=== PATIENT | male | born 1950 | race African-American/Black ===

== ENCOUNTER → 2020-05-28 09:57 | Outpatient (BNVA) | payer MEDICARE, OTHER, SELFPAY | PROVIDERS: Visit Provider Urology | DX: Z13.89 Encounter for screening for other disorder (principal) | CPT/HCPCS: Q3014 ==

== ENCOUNTER 2021-05-28 09:48 | Outpatient (REF) | payer MEDICARE, OTHER, SELFPAY ==
[2021-05-28 10:57] LABS: Blood Urea Nitrogen 30 mg/dL (9-16); Estimated Glomerular Filt Rate 32
== END 2021-05-28 09:49 | disposition home or self-care (01) ==
LOC: HO.LAB 09:48
PROVIDERS: Visit Provider Urology
DX: Z12.5 Encounter for screening for malignant neoplasm of prostate (principal); N13.8 Other obstructive and reflux uropathy; N40.1 Benign prostatic hyperplasia with lower urinary tract symptoms; N26.1 Atrophy of kidney (terminal)
CPT/HCPCS: 36415; 82565; 84153; 84520

== ENCOUNTER → 2021-06-03 10:48 | Outpatient (REF) | payer MEDICARE, OTHER, SELFPAY ==
--- NOTE | ~2021-06-03 | NM_ITS ---
EXAMINATION: RENAL DYNAMIC IMAGING STUDY WITH LASIX CLINICAL INFORMATION: Atrophy of kidney (terminal) COMPARISON: The report of a prior study performed at [facility] dated 05/22/2020 is available, but the images from that study are not available for comparison. TECHNIQUE: Serial gamma scintillation camera images were obtained over the posterior trunk during the initial transit and subsequent distribution of a bolus intravenous injection of 10.0 mCi of Tc-99m DTPA. At 33 minutes later, 40 mg of Lasix was administered intravenously and an additional 30 minutes of images obtained. FINDINGS: Initial rapid sequence images show prompt and normal-appearing flow to the right kidney but flow to the left kidney is moderately diminished compared to the right. Subsequent sequential static images obtained up to 30 minutes show good concentration in the right kidney which appears normal in size. The left kidney shows moderately diminished concentration and appears slightly smaller in size than the right. There is evidence of excretory function by 3 minutes post injection on the right an by 5 minutes post injection on the left. At 30 minutes postinjection there is good visualization of activity in the urinary bladder and mild retention in both renal pelves. The right renal pelvis does not appear significantly dilated but there is mild dilatation on the left as well as diffuse prominence of the calyces. Calyceal prominence is not present on the right. Following Lasix administration, there is washout from both renal collecting systems, but this is much more rapid and more complete on the right. Washout on the left is slow and there is significantly more retention in the left renal collecting system as well as in a faintly visualized tortuous left ureter at the end of the study. A very full urinary bladder is also noted at the end of the study. The T-1/2 washout time following Lasix administration is 12.6 minutes on the left. There is insufficient retention in the right renal pelvis at the time of Lasix administration to calculating meaningful T-1/2 washout time on the right. The relative function of the two kidneys based on the 2-3 minute images are: Left 39% and right 61%. NM/NM renal flow w pharm int IMPRESSION: LEFT KIDNEY: Moderately impaired perfusion and function in the left kidney. Mild hydronephrosis is present but there is only minimal, if any, significant outflow obstruction. Some tortuosity of the left ureter is noted. RIGHT KIDNEY: Normal perfusion and function. No hydronephrosis or outflow obstruction.
== END ==
LOC: HO.NUCMED 10:48
PROVIDERS: Visit Provider Urology
DX: K26.1 Acute duodenal ulcer with perforation (principal)
CPT/HCPCS: 78708; A9539; J1940

== ENCOUNTER → 2021-07-23 15:32 | Outpatient (BNVA) | payer MEDICARE, OTHER, SELFPAY | PROVIDERS: Visit Provider Urology | DX: Z13.89 Encounter for screening for other disorder (principal) | CPT/HCPCS: Q3014 ==

== ENCOUNTER 2022-07-06 11:17 | Outpatient (REF) | payer MEDICARE, OTHER, SELFPAY ==
--- NOTE | ~2022-07-06 | US_ITS ---
EXAMINATION: US RETROPERITONEAL LIMITED (RENAL ONLY) CLINICAL INFORMATION: Unspecified hydronephrosis. COMPARISON: None available. TECHNIQUE: Real-time imaging of the kidneys. FINDINGS: RIGHT KIDNEY: 9.3 x 4.8 x 5.6 cm (SAG x AP x TRV). The kidney is normal in size, contour, and echogenicity. Renal cortical thickness is normal. No renal calculi or focal parenchymal lesions. LEFT KIDNEY: 11.2 x 6.2 x 5.5 cm (SAG x AP x TRV). The kidney is normal in size, contour, and echogenicity. Parenchymal cortical thinning. No renal calculi or focal parenchymal lesions. Mild to moderate left hydronephrosis US/US renal BI IMPRESSION: Mild to moderate left hydronephrosis with parenchymal cortical thinning.
== END 2022-07-06 11:18 | disposition home or self-care (01) ==
LOC: HO.US 11:17
PROVIDERS: Visit Provider Urology
DX: N13.30 Unspecified hydronephrosis (principal)
CPT/HCPCS: 76775

== ENCOUNTER 2022-07-17 09:37 | Outpatient (REF) | payer MEDICARE, OTHER, SELFPAY ==
[2022-07-17 10:55] LABS: Estimated Glomerular Filt Rate 38
[2022-07-17 11:16] LABS: Prostate Specific Antigen 4.03 ng/mL (<0.05-4.0)
== END 2022-07-17 09:38 | disposition home or self-care (01) ==
LOC: HO.LAB 09:37
PROVIDERS: Visit Provider Urology
DX: Z12.5 Encounter for screening for malignant neoplasm of prostate (principal); N13.30 Unspecified hydronephrosis; N13.8 Other obstructive and reflux uropathy; N40.1 Benign prostatic hyperplasia with lower urinary tract symptoms
CPT/HCPCS: 36415; 82565; 84153

== ENCOUNTER → 2022-07-23 10:51 | Outpatient (BNVA) | payer MEDICARE, OTHER, SELFPAY | PROVIDERS: Visit Provider Urology | DX: N13.30 Unspecified hydronephrosis (principal); R33.9 Retention of urine, unspecified; R97.20 Elevated prostate specific antigen [PSA]; Z79.899 Other long term (current) drug therapy | CPT/HCPCS: 99212 ==

== ENCOUNTER 2023-03-10 09:45 | Outpatient (REF) | payer MEDICARE, OTHER, SELFPAY | END 2023-03-10 09:46 | disposition home or self-care (01) | LOC: HO.LAB 09:45 | PROVIDERS: Visit Provider Urology | DX: R97.20 Elevated prostate specific antigen [PSA] (principal); Z12.5 Encounter for screening for malignant neoplasm of prostate | CPT/HCPCS: 36415; 84153 ==

== ENCOUNTER 2023-03-12 09:34 | Outpatient (AMB) | payer MEDICARE, OTHER, SELFPAY ==
--- NOTE | 2023-03-12 09:36 | MHC.OFFVIS ---
Intake Intake Visit Reasons: 6M PSA(set) Intake Note: Patient is Present for Telephone Follow Up PSA Urology Med: Terazosin Antibiotic Allergy: None Blood Thinner: None Allergies No Known Allergies [No Known Allergies*] Allergy (Verified 03/12/23 09:38) Medication List - Last Reconciled 03/12/23 by Tyrell Blunt MD brimonidine-timolol 0.2-0.5 % 1 drp ophthalmic (eye) BID rosuvastatin 5 mg PO DAILY rosuvastatin 10 mg PO BEDTIME terazosin 5 mg PO BEDTIME 90 days HPI HPI Comments History of Present Illness Details Tyson is a very pleasant male. He is a patient of Dr. Jasso, he is seen for the following urologic conditions - urinary retention - hydronephrosis - lower urinary tract symptoms Telemedicine Evaluation 15 min Consultation [employer] Video attempted Continues on terazosin for bladder emptying PSA normalized PSA 05/27 1.9, 07/28 4.0, 03/30 2.4 Six month follow-up to maintain stabilization Prior [facility] normal Hydronephrosis/Hydroureter: Had hydronephrosis secondary to J hooking with extremely large prostate Currently emptying well Underwent prostate procedure in 2016 Had gradual recovery of creatinine to 2.0 Hydronephrosis was diagnosed through routine imaging. Relevant past medical history BPH Yes TURP 11/22 Laser enucleation Anatomic imaging findings include US with, chronic, hydronephrosis, on the left, Prostate 85cc 01/22 PVR 1100cc, mild left hydronephrosis 03/26 , US with, PVR 875, mild left hydroneprhosis, prostate 68cc - 05/26 repeat renal imaging, delayed emptying on left side. 30% function is consistent with prior year. - 05/27 repeat renal imaging - 40% function on left side - 05/28 ultrasound parenchymal thinning left side, mild left hydro persistent Laboratory results Creatinine 08/21 2.5,05/22 2.1, 10/22 2.25, 07/23 2.0, 04/27 2.0, 06/28 Cr 1.8 Lower urinary tract symptoms Large prostate with J hooking Underwent laser enucleation 11/22 Stabilization of creatinine Single agent therapy terazosin Review of Systems Const All systems reviewed & are unremarkable except as noted in HPI and below Reports no additional complaints Resp Reports no additional complaints GI Reports no additional complaints Reports as per HPI Musc Reports no additional complaints Physical Exam Telemedicine evaluation Appropriate responses Regular breathing rate and rhythm HEENT Head: Yes normal to inspection Ears: hearing grossly normal bilaterally Eyes General: appearance normal, both eyes and all related structures Neck Neck: Yes normal visual inspection Chest Chest palpation & inspection: normal inspection of the chest Resp Effort & Inspection: normal respiratory effort and able to speak in complete sentences Assessment & Plan Assessment & Plan (1) BPH w urinary obs/LUTS: Code(s): N40.1 - Benign prostatic hyperplasia with lower urinary tract symptoms; N13.8 - Other obstructive and reflux uropathy (2) Elevated PSA: Code(s): R97.20 - Elevated prostate specific antigen [PSA] Plan Six month follow-up PSA Orders: Orders Prostate Specific Antigen 6 Months R97.20 - Elevated prostate specific antigen [PSA] Medications: Refilled terazosin 5 mg PO BEDTIME 90 caps 1RF 90 days Patient Instructions: Imaging studies, laboratory and physical exam results were discussed and reviewed in detail. No major barriers to patient understanding were identified. An opportunity to ask questions regarding the treatment plan was provided. All questions were answered. The patient expressed understanding and agreement with the above treatment plan. The patient is aware they should contact our office by phone for worsening of their current condition or the appearance of new urologic symptoms. Compliance is encouraged with any medications and followup testing that is ordered. It is a privilege to participate in the urologic care of your patient. If you have any questions or concerns regarding treatment for the above conditions, or other urologic issues, please do not hesitate to contact me. The office telephone contact is [phone]. This note is constructed using voice recognition software. While every effort has been made to ensure accuracy project manager process development errors may have been included. Yours sincerely, Dr Tyrell Blunt MD, [facility] - Urology Providers of Expert, Compassionate Care for the Genitourinary System Telehealth Telehealth Location of provider rendering services: practice address Location of patient: address on file Patient Identification confirmed using: Name, : Yes Telehealth method: video Patient verbally consented to treatment: Yes Patient verbally consented to billing insurance company: Yes Patient informed of any privacy concerns related to visit: Yes Coding Level of Care Code Tele Est Pt Level 3 (41809) Diagnoses BPH w urinary obs/LUTS N40.1; N13.8 Elevated PSA R97.20
== END 2023-03-12 10:21 | disposition home or self-care (01) ==
LOC: HO.HUSH 09:34
PROVIDERS: Visit Provider Urology
DX: N40.1 Benign prostatic hyperplasia with lower urinary tract symptoms (principal); N13.8 Other obstructive and reflux uropathy; R97.20 Elevated prostate specific antigen [PSA]
CPT/HCPCS: 99213

== ENCOUNTER → 2023-03-12 09:34 | Outpatient (BNVA) | payer MEDICARE, OTHER, SELFPAY | PROVIDERS: Visit Provider Urology ==

== ENCOUNTER 2023-12-28 11:19 | Outpatient (REF) | payer MEDICARE, OTHER, SELFPAY | END 2023-12-28 11:20 | disposition home or self-care (01) | LOC: HO.LAB 11:19 | PROVIDERS: PCP Internal Medicine; Visit Provider Urology | DX: R97.20 Elevated prostate specific antigen [PSA] (principal); Z12.5 Encounter for screening for malignant neoplasm of prostate | CPT/HCPCS: 36415; 84153 ==

== ENCOUNTER 2024-01-07 11:25 | Outpatient (AMB) | payer MEDICARE, OTHER, SELFPAY ==
--- NOTE | 2024-01-07 11:43 | MHC.OFFVIS ---
Intake Visit Reasons: 6m/PSA(set) Intake Note: Patient is Present for Follow Up PSA Urology Medication: Terazosin Antibiotic Allergies:None Blood Thinners:None Recent PSA: 12/28/2023 PSA: 2.40 Engine Lathe Set Up Operator Required: No Accompanied by: Self / Same As Patient Allergies No Known Allergies [No Known Allergies*] Allergy (Verified 01/07/24 11:51) HPI Comments Details: Tyson is a very pleasant male. He is a patient of Dr. Jasso, he is seen for the following urologic conditions - urinary retention - hydronephrosis - lower urinary tract symptoms Six-month follow-up PSA maintained May move to yearly Continues on terazosin for bladder emptying Prescription refilled PSA normalized PSA 05/27 1.9, 07/28 4.0, 03/30 2.4, 12/29 2.4 Six month follow-up to maintain stabilization Prior [facility] normal Hydronephrosis/Hydroureter: Had hydronephrosis secondary to J hooking with extremely large prostate Currently emptying well Underwent prostate procedure in 2016 Had gradual recovery of creatinine to 2.0 Hydronephrosis was diagnosed through routine imaging. Relevant past medical history BPH Yes TURP 11/22 Laser enucleation Anatomic imaging findings include US with, chronic, hydronephrosis, on the left, Prostate 85cc 01/22 PVR 1100cc, mild left hydronephrosis 03/26 , US with, PVR 875, mild left hydroneprhosis, prostate 68cc - 05/26 repeat renal imaging, delayed emptying on left side. 30% function is consistent with prior year. - 05/27 repeat renal imaging - 40% function on left side - 05/28 ultrasound parenchymal thinning left side, mild left hydro persistent Laboratory results Creatinine 08/21 2.5,05/22 2.1, 10/22 2.25, 07/23 2.0, 04/27 2.0, 06/28 Cr 1.8 Lower urinary tract symptoms Large prostate with J hooking Underwent laser enucleation 11/22 Stabilization of creatinine Single agent therapy terazosin Review of Systems Const Denies chills and Denies fever(s) Card Reports no additional complaints and Denies syncope Resp Denies cough GI Denies abdominal pain and Denies heartburn Reports as per HPI and Denies change in libido Neuro Denies syncope Psych Denies change in libido Endo Denies change in libido Physical Exam Const General: cooperative, healthy appearing, comfortable and no acute distress Orientation/consciousness: patient oriented x3 HEENT Face and sinus: Yes normal facial exam Mouth: moist mucous membranes Neck Neck: Yes normal visual inspection, Yes full ROM and Yes trachea midline Chest Chest palpation & inspection: normal inspection of the chest Resp Effort & Inspection: normal respiratory effort, able to speak in complete sentences and no respiratory distress GI Inspection: Yes normal to inspection Back/Spine/Pelvis Cervical Spine: normal cervical lordosis Thoracic/Lumbar Spine: thoracic and lumbar spine normal to inspection Skin General skin exam: no rashes or lesions noted Neuro General: patient oriented x3, gait normal, tone normal and moves all extremities Extrem General: Yes normal to inspection and Yes capillary refill normal Assessment & Plan Assessment & Plan (1) BPH w urinary obs/LUTS: Code(s): N40.1 - Benign prostatic hyperplasia with lower urinary tract symptoms; N13.8 - Other obstructive and reflux uropathy Category: Medical (2) Elevated PSA: Code(s): R97.20 - Elevated prostate specific antigen [PSA] Category: Medical Plan Twelve month follow-up Orders: Orders Prostate Specific Antigen 364 Days N13.8 - Other obstructive and reflux uropathy, N40.1 - Benign prostatic hyperplasia with lower urinary tract symptoms Patient Instructions: Imaging studies, laboratory and physical exam results were discussed and reviewed in detail. No major barriers to patient understanding were identified. An opportunity to ask questions regarding the treatment plan was provided. All questions were answered. The patient expressed understanding and agreement with the above treatment plan. The patient is aware they should contact our office by phone for worsening of their current condition or the appearance of new urologic symptoms. Compliance is encouraged with any medications and followup testing that is ordered. It is a privilege to participate in the urologic care of your patient. If you have any questions or concerns regarding treatment for the above conditions, or other urologic issues, please do not hesitate to contact me. The office telephone contact is [phone]. This note is constructed using voice recognition software. While every effort has been made to ensure accuracy change management analyst errors may have been included. Yours sincerely, Dr Tyrell Blunt MD, [facility] - Urology Providers of Expert, Compassionate Care for the Genitourinary System Coding Level of Care Code Est Pt Level 3 (24248) Diagnoses BPH w urinary obs/LUTS N40.1; N13.8 Elevated PSA R97.20
== END 2024-01-07 11:57 | disposition home or self-care (01) ==
LOC: HO.HUSH 11:25
PROVIDERS: Visit Provider Urology
DX: N40.1 Benign prostatic hyperplasia with lower urinary tract symptoms (principal); N13.8 Other obstructive and reflux uropathy; R97.20 Elevated prostate specific antigen [PSA]
CPT/HCPCS: 99213

== ENCOUNTER → 2024-01-07 11:25 | Outpatient (BNVA) | payer MEDICARE, OTHER, SELFPAY | PROVIDERS: Visit Provider Urology | DX: N40.1 Benign prostatic hyperplasia with lower urinary tract symptoms (principal); N13.8 Other obstructive and reflux uropathy; R97.20 Elevated prostate specific antigen [PSA] | CPT/HCPCS: 99212 ==

== ENCOUNTER 2025-01-22 10:19 | Outpatient (REF) | payer MEDICARE, OTHER, SELFPAY ==
[2025-01-22 11:35] LABS: Prostate Specific Antigen 5.07 ng/mL (<0.05-4.0)
== END 2025-01-22 10:20 | disposition home or self-care (01) ==
LOC: HO.LAB 10:19
PROVIDERS: Visit Provider Urology
DX: Z12.5 Encounter for screening for malignant neoplasm of prostate (principal); N40.1 Benign prostatic hyperplasia with lower urinary tract symptoms; N13.8 Other obstructive and reflux uropathy
CPT/HCPCS: 36415; 84153

== ENCOUNTER 2025-01-30 08:15 | Outpatient (AMB) | payer MEDICARE, OTHER, SELFPAY ==
--- NOTE | 2025-01-30 08:16 | A.OFFVIS_ITS ---
Intake Visit Reasons: 1Y PSA/PVR(psa?) Intake Note: Patient is Present for 1 YR Follow Up PSA Urology Medication: Terazosin Antibiotic Allergies:None Blood Thinners:None PVR:282 MLS Recent PSA: 01/22/25 PSA: 5.07 Security Systems Administrator Required: No Accompanied by: Self / Same As Patient Allergies No Known Allergies (No Known Allergies*) Allergy (Verified 01/30/25 08:19) HPI Comments Details: Tyson is a very pleasant male. He is a patient of Dr. Jasso, he is seen for the following urologic conditions - urinary retention - hydronephrosis - lower urinary tract symptoms 12m f/u Continues on terazosin for bladder emptying PSA has risen PVR 200 cc Start finasteride PSA 05/27 1.9, 07/28 4.0, 03/30 2.4, 12/29 2.4, 01/30 5.1 Six month follow-up to maintain stabilization Prior [facility] normal Hydronephrosis/Hydroureter: Had hydronephrosis secondary to J hooking with extremely large prostate Currently emptying well Underwent prostate procedure in 2016 Had gradual recovery of creatinine to 2.0 Hydronephrosis was diagnosed through routine imaging. Relevant past medical history BPH Yes TURP 11/22 Laser enucleation Anatomic imaging findings include US with, chronic, hydronephrosis, on the left, Prostate 85cc 01/22 PVR 1100cc, mild left hydronephrosis 03/26 , US with, PVR 875, mild left hydroneprhosis, prostate 68cc - 05/26 repeat renal imaging, delayed emptying on left side. 30% function is consistent with prior year. - 05/27 repeat renal imaging - 40% function on left side - 05/28 ultrasound parenchymal thinning left side, mild left hydro persistent Laboratory results Creatinine 08/21 2.5,05/22 2.1, 10/22 2.25, 07/23 2.0, 04/27 2.0, 06/28 Cr 1.8 Lower urinary tract symptoms Large prostate with J hooking Underwent laser enucleation 11/22 Stabilization of creatinine Single agent therapy terazosin Review of Systems Const Denies chills and Denies fever(s) Card Reports no additional complaints and Denies syncope Resp Denies cough GI Denies abdominal pain and Denies heartburn Reports as per HPI and Denies change in libido Neuro Denies syncope Psych Denies change in libido Endo Denies change in libido Physical Exam Const General: cooperative, healthy appearing, comfortable and no acute distress Orientation/consciousness: patient oriented x3 HEENT Face and sinus: Yes normal facial exam Mouth: moist mucous membranes Neck Neck: Yes normal visual inspection, Yes full ROM and Yes trachea midline Chest Chest palpation & inspection: normal inspection of the chest Resp Effort & Inspection: normal respiratory effort, able to speak in complete sentences and no respiratory distress GI Inspection: Yes normal to inspection Back/Spine/Pelvis Cervical Spine: normal cervical lordosis Thoracic/Lumbar Spine: thoracic and lumbar spine normal to inspection Skin General skin exam: no rashes or lesions noted Neuro General: patient oriented x3, gait normal, tone normal and moves all extremities Extrem General: Yes normal to inspection and Yes capillary refill normal Office Procedures Post Void Residual Post Residual Void Post Void Residual (PVR): 282 [id number] Void Residual by ultrasound Results AMB Urinalysis, Automated UA Leukoctes 70 Solange/uL Last Edit by Tamra Rider [facility] on 01/30/25 08:27 UA Nitrite Negative Last Edit by Tamra Rider [facility] on 01/30/25 08:27 UA Urobilinogen 0.2 mg/dL Last Edit by Tamra Rider [facility] on 01/30/25 08:27 UA Protein 30 mg/dL Last Edit by Tamra Rider [facility] on 01/30/25 08:27 UA pH 6.0 Last Edit by Tamra Rider [facility] on 01/30/25 08:27 UA Blood 0 Tadeo/uL Last Edit by Tamra Rider [facility] on 01/30/25 08:27 UA Specific Kipling 1.015 Last Edit by Tamra Rider [facility] on 01/30/25 08:2 7 UA Ketone Negative Last Edit by Tamra Rider [facility] on 01/30/25 08:27 UA Bilirubin 0 mg/dL Last Edit by Tamra Rider [facility] on 01/30/25 08:27 UA Glucose 0 mg/dL Last Edit by Tamra Rider [facility] on 01/30/25 08:27 Results Reviewed Results Reviewed: Laboratory Last Values Urine pH (Auto) 6.0 01/30/25 08:27 Specific Kipling (Auto) 1.015 01/30/25 08:27 Urine Protein (Auto) 30 mg/dL 01/30/25 08:27 Glucose (UA)(Auto) 0 mg/dL 01/30/25 08:27 Urine Ketones (Auto) Negative 01/30/25 08:27 Urine Blood (Auto) 0 Tadeo/uL 01/30/25 08:27 Urine Nitrite (Auto) Negative 01/30/25 08:27 Urine Bilirubin (Auto) 0 mg/dL 01/30/25 08:27 Urine Urobilinogen (Auto) 0.2 mg/dL 01/30/25 08:27 Leukocyte Esterase (Auto) 70 Solange/uL 01/30/25 08:27 Assessment & Plan Assessment & Plan (1) Hydronephrosis: Code(s): N13.30 - Unspecified hydronephrosis Category: Medical (2) BPH w urinary obs/LUTS: Code(s): N40.1 - Benign prostatic hyperplasia with lower urinary tract symptoms; N13.8 - Other obstructive and reflux uropathy Category: Medical Plan Six-month follow-up Start dutasteride Continue terazosin PSA Orders: Orders Prostate Specific Antigen 6 Months R97.20 - Elevated prostate specific antigen [PSA] Medications: New dutasteride 0.5 mg PO DAILY 90 caps 1RF 90 days N13.8 - Other obstructive and reflux uropathy, N40.1 - Benign prostatic hyperplasia with lower urinary tract symptoms Refilled terazosin 5 mg PO BEDTIME 90 caps 3RF 90 days N13.8 - Other obstructive and reflux uropathy, N40.1 - Benign prostatic hyperplasia with lower urinary tract symptoms Patient Instructions: This note is constructed using voice recognition software. While every effort has been made to ensure accuracy senior administrative assistant errors may have been included. Imaging studies, laboratory and physical exam results were discussed and reviewed in detail. No major barriers to patient understanding were identified. An opportunity to ask questions regarding the treatment plan was provided. All questions were answered. The patient expressed understanding and agreement with the above treatment plan. The patient is aware they should contact our office by phone for worsening of their current condition or the appearance of new urologic symptoms. Compliance is encouraged with any medications and followup testing that is ordered. It is a privilege to participate in the urologic care of your patient. If you have any questions or concerns regarding treatment for the above conditions, or other urologic issues, please do not hesitate to contact me. The office telephone contact is [phone]. Sincerely, Dr Tyrell Blunt MD, [facility] - Urology Compassionate Specialist Care for the Genitourinary System Coding Level of Care Code Complex visit Add On G2211 Diagnoses Hydronephrosis N13.30 BPH w urinary obs/LUTS N40.1; N13.8 CPT Codes Post Residual Void - PVR CPT Code: 67402-Umcs Void Residual by ultrasound ([id number])
--- OUTSIDE RECORDS SUMMARY | 2025-01-30 08:28 | XMS_ITS | Clinical Summary ---
Author Organization [address] [place] [address] Address [address] [place] [address] Phone Care Team Providers Care Sales Service Manager Name Role Phone Eunice Nash MD Primary Care Provider [phone] Allergies No known active allergies Medications terazosin (HYTRIN) 5 mg capsule Take 1 capsule (5 mg total) by mouth 1 (one) time each day. 0 Active Combigan 0.2-0.5 % ophthalmic solution apply 1 Drop to the eye at bedtime. 1 Active cholecalciferol (VITAMIN D-3) 25 mcg (1,000 unit) capsule Take 2 Caps by mouth daily. 4 Active amLODIPine (NORVASC) 10 mg tabletIndications :Essential (primary) hypertension TAKE 1 TABLET BY MOUTH 1 TIME EACH DAY. 90 tablet 1 5 Active rosuvastatin (CRESTOR) 10 mg tablet TAKE 1 TABLET BY MOUTH 1 TIME EACH DAY. 90 tablet 1 5 Active Active Problems Problem Noted Date Diagnosed Date Tubular adenoma 08/01/2020 Overview (12/15/2023): X6 07/30/20 repeat colonoscopy in 2 years Primary osteoarthritis of right knee 09/27/2017 Atrophy of left kidney 07/27/2017 Overview (12/15/2023): Sees Dr Tyrell Gamble in Urology, on terazosin 5mg/day Constipation 11/23/2007 BPH with urinary obstruction 02/03/2007 Essential hypertension, benign 10/29/2005 Hyperlipidemia 10/29/2005 Obesity, unspecified 10/29/2005 Resolved Problems Problem Noted Date Diagnosed Date Resolved Date Prediabetes 11/17/2006 09/22/2024 Encounters Date Type Department Care Team Description 12/19/2024 Telephone [facility] [address] [facility] [place] [address] Inez Solitario [place] 11/27/2024 [facility] [address] [facility] [place] [address] Eunice Nash MD from Last 3 Months Immunizations Immunization Administration Dates Next Due Influenza trivalent, 0.5mL ( Fluzone High-dose) 65yo and older 11/25/2022,05/19/2021,12/11/2016,11/27 Influenza trivalent, with pr eservative (Fluzone; Afluria) 6mo and older 03/30/2011 Influenza, Unspecified 03/30/2011 Pneumococcal conjugate 13 va lent (Prevnar 13, PCV13) 2mo and older 03/30/2017 Pneumococcal conjugate 20 va lent (Prevnar 20, PCV 20) 2mo and older 11/25/2022 Pneumococcal polysaccharide 23 valent (Pneumovax 23) 2yo and older 11/25/2022 Td Tetanus diptheria (Tdvax) 7yo and older 06/13/1996 Tdap Tetanus diptheria acell ular pertussis (Boostrix; Adacel) 7yo and older 11/16/2006 Surgical History Surgery Date Site/Laterality Comments HERNIA REPAIR 1983 Left PROCEDURE: HISTORICAL HERNIA REPAIR/ING EXCISION BENIGN SKIN LESION TRUNK / ARM / LEG 12/1991 PROCEDURE: NV EXCISION TUMOR SOFT TISSUE BACK/FLANK SUBQ <3CM COLONOSCOPY 12/22/2005 PROCEDURE: HISTORICAL COLONOSCOPY; COMMENT: good for 10yrs per Dr. Contreras PROSTATE SURGERY 2007 PROCEDURE: HISTORICAL PROSTATE SURGERY; COMMENT: Dr. Terry- laser TURP ANKLE FRACTURE SURGERY 04/2013 Right PROCEDURE: NV OPEN TREATMENT MEDIAL MALLEOLUS FRACTURE; COMMENT: Distal Fibula (failed cast, Mar) OTHER SURGICAL HISTORY 10/10/2018 Left PROCEDURE: NV XCAPSL CTRC RMVL INSJ IO LENS PROSTH W/O ECP; COMMENT: and iStent for mild open angle glaucoma by Dr Gaxiola OTHER SURGICAL HISTORY 2019 Left PROCEDURE: FLUOROSCOPIC PROCEDURE NEC; COMMENT: left ureter retrograde and stenting x2 in 2019 Dr Blunt, stent removed 10/23/2019 CATARACT EXTRACTION PROCEDURE: HISTORICAL CATARACT REMOVAL Medical History Medical History Date Comments Other and unspecified hyperlipidemia 10/29/2005 DX:Other and unspecified hyperlipidemia Obesity, unspecified 10/29/2005 DX:Obesity, unspecified Essential hypertension, benign 10/29/2005 D X:Essential hypertension, benign Atrophy of left kidney 07/27/2017 DX:Atroph y of left kidney Primary osteoarthritis of right knee 09/27/2017 DX:Primary osteoarthritis of right knee Tubular adenoma 08/01/2020 DX:Tubular adeno ma; COMMENT: X6 07/30/20 repeat colonoscopy in 2 years Type 2 diabetes mellitus (CM S/HCC V24, CMS/HCC V28) 05/27/2023 DX:Type 2 diabetes mellitus (HCC) Family History Medical History Relation Name Comments No Known Problems Brother x2 No Known Problems Daughter 1 No Known Problems Daughter 2 No Known Problems Father No Known Problems Mother No Known Problems Sister 1 No Known Problems Sister 2 Relation Name Status Comments Brother x2 (Age 79) Daughter 1 Alive born '83 Tulio , healthy, manager of regulatory affairs in [place] Daughter 2 Alive born '89 Belinda , has Autism, high function, lives with Pt Father (Age 70) natural c auses Mother (Age 100) natural causes , in [place] Sister 1 (Age 69) natural c auses in [place] Sister 2 (Age 55) [place] Social History Tobacco Use Types Packs/Day Years Used Date Smoking Tobacco: Never Smokeless Tobacco: Never Tobacco Cessation:Counseling Given: Not Answered Alcohol Use Standard Drinks/Week Comments No 0 (1 standard drink = 0.6 oz pur e alcohol) Sex and Gender Information Value Date Recorded Sex Assigned at Not on file Legal Sex Male 8:17 PM EST Gender Identity Not on file Sexual Orientation Not on file Obstetrics History Last Filed Vital Signs Vital Sign Reading Time Taken Comments Blood Pressure 129/78 09/22/2024 8:38 AM EDT aut o cuff Pulse 66 09/22/2024 8:38 AM EDT auto cuff Temperature 36.3 C (97.3 F) 09/22/2024 8:38 AM EDT Respiratory Rate - - Oxygen Saturation - - Inhaled Oxygen Concentration - - Weight 93.3 kg (205 lb 11.2 oz) 09/22/2024 8:38 AM EDT Height 170.2 cm (5' 7 ) 01/26/2024 7:50 AM EST Body Mass Index 32.22 01/26/2024 7:50 AM EST Plan of Treatment Upcoming Encounters Date Type Department Care Team (Late st Contact Info) Description 02/20/2025 1:00 PM EST Office Visit Nephrology - [address] [phone] Dennis Rahman MD [facility] [address] [place] [address] 02/20/2025 1:30 PM EST Clinical Support Internal Medicine - [address] [phone] 03/26/2025 9:00 AM EST Office Visit Internal Medicine - [address] [phone] Amina Huang, YANG [address] [place] [address] Health Maintenance Due Date Last Done Comments DTaP,Tdap,and Td Vaccines (3 - Td or Tdap) 11/16/2016 11/16/2006, 06/13/1996 Zoster Vaccines (2 of 2) 06/19/2020 04/24/2020 Social Influencers of Health Screening 02/14/2022 Falls Risk Assessment 06/10/2022 06/10/2021 COVID-19 Vaccine (3 - Pfizer risk series) 07/02/2022 06/04/2022, 12/26/2020 Depression Screening 03/08/2024 11/02/2023 RSV Immunization Adult Patients (1 - 1-dose 75+ series) 2024 Medicare Annual Wellness Visit 11/01/2024 11/02/2023 Influenza Vaccine (#1) 2024 , 11/25/2022, 02/14/2022, Additional history exists Colorectal Cancer Screening: Colonoscopy 06/27/2025 06/28/2023 Hypertension/CHF/CAD Annual BMP Blood Test 10/12/2025 10/12/2024, 12/23/2023, 08/10/2022 Cholesterol Screening (Lipid Panel) 10/12/2029 10/12/2024, 12/23/2023, 10/23/2022 Hepatitis C Screening Completed 02/02/2007 Pneumococcal Vaccine: 50+ Years Completed 11/25/2022, 11/25/2022, 03/30/2017 HIB Vaccines Aged Out No longer eligi ble based on patient's age to complete this topic HPV Vaccines Aged Out No longer eligi ble based on patient's age to complete this topic Hepatitis A Vaccines Aged Out No long er eligible based on patient's age to complete this topic Hepatitis B Vaccines Aged Out No long er eligible based on patient's age to complete this topic IPV Vaccines Aged Out No longer eligi ble based on patient's age to complete this topic MMR Vaccines Aged Out No longer eligi ble based on patient's age to complete this topic Meningococcal ACWY Vaccine Aged Out N o longer eligible based on patient's age to complete this topic Meningococcal B Vaccine Aged Out No l onger eligible based on patient's age to complete this topic RSV Immunization Patients Under 20 months Aged Out No longer eligible based on patient's age to complete this topic Varicella Vaccines Aged Out No longer eligible based on patient's age to complete this topic Procedures Procedure Name Priority Date/Time Associated Diagnosis Comments COMPREHENSIVE METABOLIC PANEL Routine 10/12/2024 10:08 AM EDT Essential hypertension, benign Hyperlipidemia, unspecified hyperlipidemia type Prediabetes LIPID PANEL WITH REFLEX TO DIRECT LDL Routine 10/12/2024 10:08 AM EDT Hyperlipidemia, unspecified hyperlipidemia type DEPRESSION SCREENING Routine 11/02/2023 COLONOSCOPY Routine 06/28/2023 FALLS RISK ASSESSMENT Routine 06/10/2021 HEPATITIS C SCREENING Routine 02/02/2007 from Last 3 Months or Most Recently Relevant to Health Maintenance Results * Lipid panel with reflex to direct LDL (10/12/2024 10:08 AM EDT) Cholesterol 168 0 - 200 mg/dL LAB CHEMISTRY METHOD 10/12/2024 2:40 PM EDT [facility] Triglycerides 46 0 - 150 mg/dL LAB CHEMISTRY METHOD 10/12/2024 2:40 PM EDT [facility] HDL 81 >=40 mg/dL LAB CHEMISTRY METHOD 10/12/2024 2:40 PM EDT [facility] LDL Calculated 78 0 - 100 mg/dL LAB CHEMISTRY METHOD 10/12/2024 2:40 PM EDT [facility] Comment:Estimated LDL Calcul ated using equation: Total cholesterol - HDL cholesterol - (Triglycerides/5) VLDL Cholesterol Malvin 9.2 mg/dL LAB CHEMISTRY METHOD 10/12/2024 2:40 PM EDT [facility] Non HDL Chol. (LDL+VLDL) 87 <145 mg/dL LAB CHEMISTRY METHOD 10/12/2024 2:40 PM EDT [facility] Chol/HDL Ratio 2.1 0.0 - 4.4 LAB CHEMISTRY METHOD 10/12/2024 2:40 PM EDT [facility] Blood Venous blood specimen / Unknown Venipuncture / Unknown 10/12/2024 10:08 AM EDT 10/12/2024 10:08 AM EDT us Amina Mock NP LAB BLOOD ORDERABLES Final R esult [facility] [address] [place] [address], * (ABNORMAL) Comprehensive metabolic panel (10/12/2024 10:08 AM EDT) Sodium 140 133 - 145 mmol/L LAB CHEMISTRY METHOD 10/12/2024 2:37 PM EDT [facility] Potassium 4.2 3.5 - 5.5 mmol/L LAB CHEMISTRY METHOD 10/12/2024 2:37 PM [facility] Chloride 107 96 - 110 mmol/L LAB CHEMISTRY METHOD 10/12/2024 2:37 PM [facility] CO2 29 21 - 32 mmol/L LAB CHEMISTRY METHOD 10/12/2024 2:37 PM [facility] Anion Gap 4 3 - 11 LAB CHEMISTRY METHOD 10/12/2024 2:37 PM [facility] Glucose 108(H) 70 - 100 mg/dL LAB CHEMISTRY METHOD 10/12/2024 2:37 PM [facility] BUN 32(H) 5 - 25 mg/dL LAB CHEMISTRY METHOD 10/12/2024 2:37 PM [facility] Creatinine 2.11(H) 0.70 - 1.30 mg/dL LAB CHEMISTRY METHOD 10/12/2024 2:37 PM [facility] eGFR 32(L) >=60 mL/min/1. 73m2 LAB CHEMISTRY METHOD 10/12/2024 2:37 PM [facility] Comment:Calculation based on the Chronic Kidney Disease Epidemiology Collaboration (CKD-EPI) equation refit without adjustment for race. BUN/Creatinine Ratio 15.2 LAB CHEMISTRY METHOD 10/12/2024 2:37 PM [facility] Calcium 9.0 8.5 - 10.5 mg/dL LAB CHEMISTRY METHOD 10/12/2024 2:37 PM [facility] AST (SGOT) 19 10 - 42 unit/L LAB CHEMISTRY METHOD 10/12/2024 2:37 PM [facility] ALT (SGPT) 20 10 - 60 unit/L LAB CHEMISTRY METHOD 10/12/2024 2:37 PM [facility] Alkaline Phosphatase 57 42 - 121 unit/L LAB CHEMISTRY METHOD 10/12/2024 2:37 PM [facility] Total Protein 7.1 6.0 - 8.0 g/dL LAB CHEMISTRY METHOD 10/12/2024 2:37 PM EDT [facility] Albumin 3.9 3.2 - 5.0 g/dL LAB CHEMISTRY METHOD 10/12/2024 2:37 PM EDT [facility] Total Bilirubin 0.6 0.0 - 1.4 mg/dL LAB CHEMISTRY METHOD 10/12/2024 2:37 PM EDT [facility] Blood Venous blood specimen / Unknown Venipuncture / Unknown 10/12/2024 10:08 AM EDT 10/12/2024 10:08 AM EDT Amina Mock NP LAB BLOOD ORDERABLES Final R esult [facility] [address] [place] [address], * Depression Screening (11/02/2023) Pathologist [facility] Depression Screening Abstracted [facility] Provider HEALTH MAINTENANCE Final Result * Colonoscopy (06/28/2023) [facility] Colonoscopy Abstracted, Positive Anatomical Region Laterality Modality Other [facility] Deejay [facility] HEALTH MAINTENANCE Final Result * Falls Risk Assessment (06/10/2021) [facility] Falls Risk Assessment Abstracted [facility] Provider HEALTH MAINTENANCE Final Result * Hepatitis C Screening (02/02/2007) [facility] Hepatitis C Screening Abstracted [facility] Provider HEALTH MAINTENANCE Final Result from Last 3 Months or Most Recently Relevant to Health Maintenance Insurance MEDICARE [facility] Care Teams Sales Service Manager Relationship Specialty Start Date End Date Eunice Nash MD [address] [facility] [place] [phone] PCP - General Internal Medicine 11/27/24
--- OUTSIDE RECORDS SUMMARY | 2025-01-30 08:28 | XMS_ITS | Clinical Summary ---
Author Organization [facility] Facility Address [address] [facility] [address] [place] [address] [place] [address], [place] [address] Care Team Providers Care Business And Marketing Teacher Name Role Phone Adam Jiménez Primary Care Provider Jolly silva Social History Tobacco Use Types Packs/Day Years Used Date Smoking Tobacco: Never Assessed Sex and Gender Information Value Date Recorded Sex Assigned at Male 08/27/2022 10:27 AM EDT Legal Sex Male 10:24 AM EDT Gender Identity Male 08/27/2022 10:27 AM EDT Sexual Orientation Not on file Plan of Treatment Health Maintenance Due Date Last Done Comments Colorectal Cancer Screening: Annual FOBT 1998 Colorectal Cancer Screening: Colonoscopy 1998 Colorectal Cancer Screening: Sigmoidoscopy 1998 Pneumococcal Vaccine: 50+ Years (2 of 2 - PPSV23, PCV20, or PCV21) 05/25/2017 03/30/2017 Influenza Vaccine (#1) 2024 2, 12/11/2016, 11/28/2015 Hepatitis B Vaccine Aged Out No longe r eligible based on patient's age to complete this topic Insurance Medicare Medicare Care Teams Business And Marketing Teacher Relationship Specialty Start Date End Date Adam Jiménez PCP - General Internal Medicine 08/27/22
--- OUTSIDE RECORDS SUMMARY | 2025-01-30 08:28 | XMS_ITS ---
Author Name [facility] Organization Unknown Care Team Organization Name Specialty Phone Email Start Date End Da te [facility] 10/25/2024 [facility] Adam De La Cruz Primary Care 01/13/2022 10/25/2023
== END 2025-01-30 09:06 | disposition home or self-care (01) ==
LOC: HO.HUSH 08:16
PROVIDERS: Visit Provider Urology
DX: N40.1 Benign prostatic hyperplasia with lower urinary tract symptoms (principal); N13.8 Other obstructive and reflux uropathy; N13.30 Unspecified hydronephrosis
CPT/HCPCS: 99214; G2211

== ENCOUNTER → 2025-01-30 08:15 | Outpatient (BNVA) | payer MEDICARE, OTHER, SELFPAY | PROVIDERS: Visit Provider Urology | DX: N40.1 Benign prostatic hyperplasia with lower urinary tract symptoms (principal); N13.8 Other obstructive and reflux uropathy; N13.30 Unspecified hydronephrosis | CPT/HCPCS: 51798; 99212 ==

== ENCOUNTER → 2025-03-05 09:32 | Outpatient (BNVA) | payer MEDICARE, OTHER, SELFPAY | PROVIDERS: Visit Provider Urology | DX: N40.1 Benign prostatic hyperplasia with lower urinary tract symptoms (principal); N13.8 Other obstructive and reflux uropathy | CPT/HCPCS: 51700; 51702; 51798 ==